=== PATIENT | female | born 1975 | race Caucasian/White ===

== ENCOUNTER 2017-05-13 13:52 | Emergency (ER) | payer BC ==
[2017-05-13] MEDS: HYDROmorphONE 2 MG/ML SYG IV (16:12)
[2017-05-13] MEDS: SOD CHLORIDE 0.9% 500 ML IV (16:12)
[2017-05-13] MEDS: ONDANSETRON 4 MG INJ IV (16:12)
[2017-05-13] MEDS: ONDANSETRON (ODT) 4 MG TAB ODT (19:44)
== END 2017-05-13 19:48 | disposition home or self-care (01) ==
LOC: FTE 13:52
DX: G43.119 Migraine with aura, intractable, without status migrainosus (principal)
CPT/HCPCS: 96374; 96375; 99284-25

== ENCOUNTER 2017-06-13 09:14 | Emergency (ER) | payer BC ==
[2017-06-13] MEDS: KETOROLAC 60 MG INJ IM (11:06)
== END 2017-06-13 13:10 | disposition home or self-care (01) ==
LOC: FTE 09:14
DX: M54.2 Cervicalgia (principal)
CPT/HCPCS: 72040; 96372; 99284-25